=== PATIENT | female | born 2000 | race Caucasian/White ===

== ENCOUNTER 2024-03-25 13:16 | Emergency (ER) | payer OTHER ==
[~2024-03-25] VITALS: Ht 170.2 cm; Wt 78.2 kg
[2024-03-25] MEDS ORDERED: Ketorolac 30 MG/ML VIAL IV ONE (14:00)
[2024-03-25] MEDS ORDERED: Iohexol 300 - 100 ML VIAL IV ONE (14:20)
[2024-03-25] MEDS ORDERED: AMOXIL500 M1 PO (14:40)
[2024-03-25] MEDS ORDERED: ZITHROMAX Z PA250 MG PO (14:40)
[2024-03-25 15:00] VITALS: BP 117/69
== END 2024-03-25 15:00 | disposition home or self-care (01) ==
LOC: ED 13:16
DX: J18.9 Pneumonia, unspecified organism (principal)
CPT/HCPCS: J1885; Q9967

== ENCOUNTER → 2024-03-25 | Outpatient (CLI) | payer OTHER ==
[~2024-03-25] MED LIST: AMOXIL500 M1 PO; ZITHROMAX Z PA250 MG PO
[2024-03-25 10:58] LABS: BASO # 0.01 K/mm3 (0.02-0.10); EOS # 0.06 K/mm3 (0.04-0.40); EOS % 1.3 % (1.0-5.0); HEMATOCRIT 41.5 % (37.0-47.0); HEMOGLOBIN 13.3 g/dL (12.5-16.0); LYMPH# 0.89 K/mm3 (1.50-4.00); MEAN CELL VOLUME 91 fl (78-100); MEAN CORPUSCULAR HEMOGLOBIN 29 pg (27-31); MEAN CORPUSCULAR HGB CONC 32 g/dL (33-37); MEAN PLATELET VOLUME 9.5 fl (7.4-10.4); MONO # 0.48 K/mm3 (0.20-0.80); NEU # 3.21 K/mm3 (1.40-6.50); PLATELET COUNT 218 K/mm3 (130-400); RED BLOOD COUNT 4.57 M/mm3 (4.10-5.30); RED CELL DISTRIBUTION WIDTH 11.7 % (11.5-14.5); WHITE BLOOD COUNT 4.7 K/mm3 (4.8-10.8)
[2024-03-25 11:04] LABS: CALCIUM 9.4 mg/dL (8.3-10.5)
[2024-03-25 11:45] LABS: D-DIMER 0.61 mg/L FEU (0.15-0.50)
== END ==
LOC: LAB 10:28
PROVIDERS: Nurse Practitioner Family
DX: R07.9 Chest pain, unspecified (principal); R06.00 Dyspnea, unspecified

== ENCOUNTER → 2024-05-16 | Outpatient (CLI) | payer OTHER | LOC: RAD 09:15 | DX: R10.9 Unspecified abdominal pain (principal) ==

== ENCOUNTER → 2024-05-28 | Outpatient (CLI) | payer OTHER | LOC: LAB 08:37 | DX: Z32.01 Encounter for pregnancy test, result positive (principal) ==

== ENCOUNTER → 2024-05-30 | Outpatient (CLI) | payer OTHER ==
[~2024-05-30] MED LIST changes: +Iohexol 300 - 100 ML VIAL IV ONE
== END ==
LOC: RAD 05-29 08:00
DX: R10.31 Right lower quadrant pain (principal)
CPT/HCPCS: Q9967

== ENCOUNTER 2024-10-31 08:03 | Emergency (ER) | payer OTHER ==
[~2024-10-31] VITALS: Ht 172.7 cm; Wt 76.8 kg
[~2024-10-31 08:03] MED LIST changes: -Iohexol 300 - 100 ML VIAL IV ONE
[2024-10-31 08:30] VITALS: BP 118/64
[2024-10-31] MEDS ORDERED: AMOXICILLIN AND1 TA2 PO (08:39)
[2024-10-31] MEDS ORDERED: MUPIROCIN2% TP (08:39)
[2024-10-31] MEDS ORDERED: Amoxicillin/Clavulanate K+ 875/125 MG TAB PO ONE (08:45)
== END 2024-10-31 09:03 | disposition home or self-care (01) ==
LOC: ED 08:03
DX: S61.217A Laceration without foreign body of left little finger without damage to nail, initial encounter (principal); W26.0XXA Contact with knife, initial encounter; Y93.89 Activity, other specified; Y99.8 Other external cause status